=== PATIENT | male | born 1995 | race American Indian/Alaskan Native ===

== ENCOUNTER 2019-08-04 10:15 | Emergency (ER) | payer OTHER ==
[2019-08-04 11:36] VITALS: BP 126/82
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
[2019-08-04] MEDS ORDERED: IBUPROFEN 800 MG TAB PO ONE (12:03)
== END 2019-08-04 12:43 | disposition home or self-care (01) ==
LOC: ED 10:15
DX: S63.501A Unspecified sprain of right wrist, initial encounter (principal); R03.0 Elevated blood-pressure reading, without diagnosis of hypertension; F17.200 Nicotine dependence, unspecified, uncomplicated; F12.10 Cannabis abuse, uncomplicated; Z79.1 Long term (current) use of non-steroidal anti-inflammatories (NSAID); V49.49XA Driver injured in collision with other motor vehicles in traffic accident, initial encounter; Y93.89 Activity, other specified; Y92.410 Unspecified street and highway as the place of occurrence of the external cause; Y99.8 Other external cause status